=== PATIENT | female | born 1965 | race Native Hawaiian/Other Pacific Islander ===

== ENCOUNTER 2017-12-08 08:26 | Outpatient (CLI) | payer BC | END 2017-12-08 21:49 | disposition home or self-care (01) | LOC: MAMMO 08:26 | DX: Z12.31 Encounter for screening mammogram for malignant neoplasm of breast (principal) ==

== ENCOUNTER 2018-12-21 19:05 | Emergency (ER) | payer BC ==
[~2018-12-21] VITALS: Ht 160 cm; Wt 128.4 kg
[2018-12-21 20:35] LABS: PLATELET COUNT 301 K/uL (152-353)
[2018-12-21 21:17] VITALS: BP 144/74; TEMP 97.5
== END 2018-12-21 21:20 | disposition home or self-care (01) ==
LOC: ED 19:05
PROVIDERS: Emergency Medicine
DX: R79.89 Other specified abnormal findings of blood chemistry (principal); M79.604 Pain in right leg
CPT/HCPCS: 80053; 85027; 85379; 99283

== ENCOUNTER 2019-05-15 09:39 | Outpatient (CLI) | payer BC | END 2019-05-15 19:56 | disposition home or self-care (01) | LOC: MAMMO 09:39 | DX: Z12.31 Encounter for screening mammogram for malignant neoplasm of breast (principal) ==

== ENCOUNTER 2020-03-13 15:12 | Outpatient (CLI) | payer BC | END 2020-03-13 21:31 | disposition home or self-care (01) | LOC: MRI 15:12 | DX: R20.2 Paresthesia of skin (principal); G43.019 Migraine without aura, intractable, without status migrainosus | CPT/HCPCS: 36415; 82565; 84520; A9576 ==

== ENCOUNTER 2020-03-14 11:06 | Outpatient (CLI) | payer BC | END 2020-03-14 21:09 | disposition home or self-care (01) | LOC: MRI 11:06 | DX: R20.2 Paresthesia of skin (principal); G43.019 Migraine without aura, intractable, without status migrainosus ==

== ENCOUNTER 2020-10-24 10:41 | Outpatient (CLI) | payer BC | END 2020-10-24 21:30 | disposition home or self-care (01) | LOC: MAMMO 10:41 | PROVIDERS: ATTEND Physician Assistant | DX: Z12.31 Encounter for screening mammogram for malignant neoplasm of breast (principal); F41.9 Anxiety disorder, unspecified ==

== ENCOUNTER 2022-11-24 11:43 | Outpatient (CLI) | payer BC | END 2022-11-24 17:00 | disposition home or self-care (01) | LOC: MAMMO 11:43 | PROVIDERS: ATTEND Obstetrics & Gynecology Obstetrics | DX: Z12.31 Encounter for screening mammogram for malignant neoplasm of breast (principal) ==